=== PATIENT | female | born 1960 | race Caucasian/White ===

== ENCOUNTER → 2021-03-04 | Outpatient (CLI) | payer OTHER ==
[~2021-03-04] MED LIST: CARVEDILOL12.5 MG PO; IPRAT-ALBUT 0.5-3 ML INH; LOVASTATIN 20 M20 MG PO; METFORMIN HCL500 M3 PO; NEURONTIN 400400 M1 PO; OMEPRAZOLE40 MG PO; PROAIR HFA8.5 GM INH; SPIRIVA RESPIMAT4 G1 INH; SYMBICORT80 MCG/4.1 INH; VOLTAREN ARTHRI20 GM TOP
== END ==
LOC: SJCVC 14:55
PROVIDERS: ATTEND Internal Medicine Cardiovascular Disease
DX: E11.9 Type 2 diabetes mellitus without complications (principal); I42.8 Other cardiomyopathies; J44.9 Chronic obstructive pulmonary disease, unspecified; I11.0 Hypertensive heart disease with heart failure; I50.22 Chronic systolic (congestive) heart failure; K21.9 Gastro-esophageal reflux disease without esophagitis; F17.200 Nicotine dependence, unspecified, uncomplicated; Z90.49 Acquired absence of other specified parts of digestive tract; Z90.710 Acquired absence of both cervix and uterus; Z95.810 Presence of automatic (implantable) cardiac defibrillator; Z88.0 Allergy status to penicillin; Z79.84 Long term (current) use of oral hypoglycemic drugs; Z79.899 Other long term (current) drug therapy; Z82.49 Family history of ischemic heart disease and other diseases of the circulatory system

== ENCOUNTER → 2021-03-09 | Outpatient (CLI) | payer OTHER ==
[~2021-03-09] VITALS: Ht 160 cm; Wt 72.7 kg
--- NOTE | ~2021-03-09 | P ---
[facility] [place] [address] PROCEDURE REPORT Name: ADITI HAUSER Room #: REG [facility]#: [id number] Admission: 03/09/21 Attend Phys: Marshall Boone MD Discharge: Date of : 58 Report #: [id number] THIS REPORT FOR: cc: Gavin Miller Jeffrey W. DO Couchonnal, Luis F. MD ~ DOC #: [id number] Marshall Boone MD DATE OF SERVICE: 03/09/2021 GENERATOR EXCHANGE PREOPERATIVE DIAGNOSIS: Biventricular implantable cardioverter defibrillator at elective replacement interval. POSTOPERATIVE DIAGNOSIS: Biventricular implantable cardioverter defibrillator at elective replacement interval. INTERVAL HISTORY: The patient is a 60-year-old female with a history of an ischemic cardiomyopathy, status post biventricular ICD implantation back in 2014 performed at an outside hospital. This was complicated by an incision that was difficult to heal, requiring two skin grafts and hyperbaric treatments. She is here for generator exchange. ANESTHESIA: The patient underwent MAC anesthesia with no anesthesia related complications. DESCRIPTION OF PROCEDURE: The patient underwent informed consent. We discussed the details of the procedure including the risks, which include but not limited to bleeding, infection, vascular damage and need for possible lead revisions. She also understands she is at higher risk for device related infections given her problems with wound healing from prior surgeries including her ICD implantation. She understood these risks and is willing to proceed. The patient was brought to the EP laboratory in fasting and sedated state, prepped and draped in a sterile fashion. She received IV antibiotics prior to initiation of the procedure. Next, I inspected the incision and I went lower than the prior incision site to enter the capsule via healthy tissue. I stayed away from any prior scar tissue to hopefully improve her chances for wound healing. The pocket was entered without any issues. The device was disconnected from the leads tested and found to be functioning normally. The new device was placed in the pocket. A TYRX antibiotic pouch was placed in the pocket. The pocket was irrigated with vancomycin and then the pocket was closed in two layers using 2-0 for the deep layer and 3-0 for the middle layer. Surgical glue was placed to outer skin layer. The patient awoke neurologically and hemodynamically intact. No complications. No significant bleeding. The [address] [address] PROCEDURE REPORT Name: ANALISAADITI Room #: REG [facility]#: [id number] Admission: 03/09/21 Attend Phys: Marshall Boone MD Discharge: Date of : 58 Report #: [id number] removed device was a Medtronic model number [id number], serial number [id number]. New implanted device was Medtr[employer] model number [id number], serial number [id number]. The atrial lead was a 5076, serial number [id number], implanted on 08/12/2015. The RV lead was a 6947, 55 cm, serial number [id number]. The LV lead was a 4196, 88 cm, serial number [id number]. Those leads were also implanted on the same date as the atrial lead. Atrial sensing impedances and thresholds were within normal limits. The device was programmed back to its original settings. CONCLUSION: 1. Successful Bi-V ICD generator exchange. 2. Satisfactory atrial, right ventricular, and left ventricular pacing and sensing thresholds. 3. Successful implantation of a TYRX antibiotic pouch. MD FARA Garcia/PUMA/DURAN By: 1020 22 Marshall Boone MD /nt
[2021-03-09 07:40] VITALS: BP 126/42
[2021-03-09 07:55] LABS: ABSOLUTE NEUTROPHILS 4.3 thou/uL (1.4-8.2); BASOPHILS 0.3 % (0.0-2.0); EOSINOPHILS 6.2 % (0.0-3.0); HEMATOCRIT 41.4 % (37.0-47.0); HEMOGLOBIN 13.8 gm/dL (12.0-15.0); LYMPHOCYTES 30.7 % (24.0-44.0); MCH 31.5 pg (26.0-34.0); MCHC 33.4 g/dL (28.0-37.0); MCV 94.2 fL (80.0-100.0); MONOCYTES 6.3 % (1.0-8.0); PLATELET COUNT 259 thou/uL (150-400); POLYS 56.5 % (36.0-66.0); RBC 4.39 mil/uL (4.20-5.00); RDW 16.2 % (10.5-14.5); WBC 7.6 thou/uL (4.0-11.0)
[2021-03-09 07:58] LABS: CALCIUM 8.4 mg/dL (8.5-10.1); CREATININE 0.7 mg/dL (0.6-1.0); POTASSIUM 4.1 mmol/L (3.5-5.1)
[2021-03-09 08:04] LABS: ALBUMIN 3.4 g/dL (3.4-5.0); TOTAL BILIRUBIN 0.3 mg/dL (0.2-1.0); TOTAL PROTEIN 7.1 g/dL (6.4-8.2)
[2021-03-09 08:53] LABS: APTT 25.2 Seconds (24.5-32.8)
== END | disposition home or self-care (01) ==
LOC: CATH 06:22
PROVIDERS: ATTEND Internal Medicine Cardiovascular Disease
DX: Z45.02 Encounter for adjustment and management of automatic implantable cardiac defibrillator (principal); I25.5 Ischemic cardiomyopathy; I11.0 Hypertensive heart disease with heart failure; I50.22 Chronic systolic (congestive) heart failure; I48.91 Unspecified atrial fibrillation; E11.9 Type 2 diabetes mellitus without complications; J44.9 Chronic obstructive pulmonary disease, unspecified; K21.9 Gastro-esophageal reflux disease without esophagitis; I73.9 Peripheral vascular disease, unspecified; F17.210 Nicotine dependence, cigarettes, uncomplicated; Z98.890 Other specified postprocedural states; Z79.899 Other long term (current) drug therapy; Z82.49 Family history of ischemic heart disease and other diseases of the circulatory system
CPT/HCPCS: 62110; 62900; 70005